=== PATIENT | male | born 2000 | race Caucasian/White ===

== ENCOUNTER 2022-05-19 19:21 | Emergency (ER) | payer BC ==
[~2022-05-19] VITALS: Ht 175.3 cm; Wt 81.6 kg
--- NOTE | 2022-05-19 19:35 | NUR ---
Patient placed in room 5A. Family member at bedside.
--- NOTE | 2022-05-19 19:37 | NUR ---
Dr. Zuniga evaluating patient at bedside. MSE in progress.
[2022-05-19] MEDS ORDERED: FINA1TAB11 PO (19:38)
[2022-05-19] MEDS ORDERED: mounjaro SUBCUT (19:38)
[2022-05-19] MEDS ORDERED: IV NORMAL SALINE 1000 ML BAG IV ONE (19:45)
[2022-05-19] MEDS ORDERED: IV NS 1000 ML 1,000 ML IV ONE (19:45)
[2022-05-19 20:01] LABS: HEMATOCRIT 52.9 % (36.7-47.1); MEAN CORPUSCULAR HEMOGLOBIN 28.5 uug (23.8-33.4); MEAN CORPUSCULAR VOLUME 84.2 fL (73.0-96.2); PLATELET COUNT (AUTO) 305 K/uL (152-348)
[2022-05-19 20:30] LABS: CREATININE 0.9 mg/dL (0.6-1.3); POTASSIUM 4.1 mmol/L (3.5-5.1)
[2022-05-19 20:36] LABS: BILIRUBIN,DIRECT 0.2 mg/dL (0.0-0.2); BILIRUBIN,TOTAL 0.7 mg/dL (0.2-1.0); TOTAL PROTEIN, SERUM 9.5 g/dL (6.4-8.2)
--- NOTE | 2022-05-19 22:35 | NUR ---
Patient discharged to home in stable condition. Written and verbal after care instructions given. Patient verbalizes understanding of instructions. Stressed follow up or return to ER for worsening s/s.
[2022-05-19 22:38] VITALS: BP 125/66
== END 2022-05-19 22:39 | disposition home or self-care (01) ==
LOC: ER 19:24
DX: R10.9 Unspecified abdominal pain (principal); E86.0 Dehydration; E83.52 Hypercalcemia; Z79.899 Other long term (current) drug therapy
CPT/HCPCS: 99283; 96360; 80076; 80048; 83690; 83735; 85025; 36415; J7040; A4663